=== PATIENT | male | born 1990 | race Caucasian/White ===

== ENCOUNTER 2019-12-12 21:16 | Emergency (ER) | payer MEDICAID ==
[~2019-12-12] VITALS: Ht 175.3 cm; Wt 108.9 kg
[2019-12-12 21:50] VITALS: BP 137/86
--- NOTE | 2019-12-12 22:26 | NUR ---
29 Y/O MALE C/O CRAMPS AND MUSCLE SPASMS TO LEFT SIDE OF CHEST FOR THE PAST 5 MONTHS THAT RADIATES TO RIGHT CHEST AREA AND ARM; AT TIMES IS CONSTANT AND OTHER TIMES IS INTERMITTENT; CURRENTLY PT HAS PAIN /; PT ALSO REPORTS CALF MUSCLE CRAMPS/SPASM THAT ARE INTERMITTENT; PT ABLE TO SMILE AND FACIAL Symmetry PRESENT; PT DENIES ANY TRAUMA; + NAUSEA; -V/D; SKIN IS PINK/WARM/DRY; AAOX4 WITH EVEN AND STEADY GAIT; HR EVEN AND REGULAR; PT DENIES ANY FEVER,SOB, OR COUGH AT THIS TIME; VSS; PATIENT POSITIONED FOR COMFORT; HOB ELEVATED; BEDRAILS UP X2; BED DOWN AND LOCKED PMH: PT DENIES NKA
[2019-12-12] MEDS ORDERED: KETOROLAC 30 MG/ML VIAL ONE (22:38)
[2019-12-12] MEDS ORDERED: KETOROLAC 30 MG/ML VIAL IVP ONE (22:55)
[2019-12-12 23:29] LABS: BASOPHILS # (AUTO) 0.1 K/uL (0.00-0.22); BASOPHILS % (AUTO) 0.8 % (0.0-2.0); EOSINOPHILS % (AUTO) 0.4 % (0.0-4.0); HEMATOCRIT 45.4 % (36-52); HEMOGLOBIN 15.6 g/dL (12.0-18.0); LYMPHOCYTES # (AUTO) 2.1 K/uL (2.0-11.5); LYMPHOCYTES % (AUTO) 21.1 % (20.5-51.1); MEAN CORPUSCULAR HEMOGLOBIN 32 pg (27-31); MEAN CORPUSCULAR HGB CONC 34 g/dL (33-37); MEAN CORPUSCULAR VOLUME 92.2 fL (80-94); MONOCYTES # (AUTO) 0.7 K/uL (0.8-1.0); MONOCYTES % (AUTO) 6.8 % (1.7-9.3); NEUTROPHILS % (AUTO) 70.9 % (42.2-75.2); PLATELET COUNT (AUTO) 247 K/uL (140-450); RED BLOOD CELL COUNT(AUTO) 4.93 MIL/uL (4.20-6.10); RED CELL DISTRIBUTION WIDTH 13.4 % (11.6-13.7); WHITE BLOOD COUNT (AUTO) 9.8 K/uL (4.8-10.8)
--- NOTE | 2019-12-12 23:30 | NUR ---
PT PROVIDED URINE SAMPLE
[2019-12-12 23:37] LABS: ALBUMIN 5.1 g/dL (3.4-5.0); ASPARTATE AMINOTRANSFERASE 77 U/L (15-37); CHLORIDE 104 mmol/L (98-107); GFR ARICAN-AMERICAN 112 mL/min (>90); GLUCOSE 98 mg/dL (74-106); SODIUM SERUM 141 mmol/L (136-145); TOTAL BILIRUBIN 0.7 mg/dL (0.0-1.0); UREA NITROGEN, BLOOD 13 mg/dL (7-18)
--- NOTE | 2019-12-12 23:44 | NUR ---
PT RESTING IN BED IN POSITION OF COMFORT, BED LOW AND LOCKED, SIDERAILS UP, VSS, WILL CONTINUE TO MONITOR
[2019-12-12 23:54] LABS: BARBITURATE, URINE NEGATIVE ng/ml (NEG <=200); BENZODIAZEPINE, URINE NEGATIVE ng/mL (NEG <=200); CANNABINOID, URINE POSITIVE ng/mL (NEG <=50); COCAINE, URINE NEGATIVE ng/mL (NEG <=300); OPIATE, URINE NEGATIVE ng/mL (NEG <=2000); PHENCYCLIDINE SCREEN,URINE NEGATIVE ng/mL (NEG <=25)
--- NOTE | 2019-12-13 00:04 | NUR ---
covering for relief for primary BURKE Mack. assumed pt care at this time.
--- NOTE | 2019-12-13 00:36 | NUR ---
PT RESTING IN BED IN POSITION OF COMFORT, BED LOW AND LOCKED, SIDERAILS UP, VSS, WILL CONTINUE TO MONITOR
[2019-12-13 00:55] VITALS: BP 122/59
--- NOTE | 2019-12-13 00:55 | NUR ---
Patient discharged with v/s stable. Written and verbal after care instructions given and explained. Patient verbalized understanding. Ambulatory with steady gait. All questions addressed prior to discharge. Advised to follow up with PMD.
== END 2019-12-13 00:55 | disposition home or self-care (01) ==
LOC: MED 21:16
DX: R07.89 Other chest pain (principal); F10.129 Alcohol abuse with intoxication, unspecified; F12.90 Cannabis use, unspecified, uncomplicated
CPT/HCPCS: 36415; 71045; 80053; 80305; 82550; 82553; 84484; 85025; 93005; 96374; 99285; G0482; J1885